=== PATIENT | male | born 1965 | race Caucasian/White ===

== ENCOUNTER 2017-12-22 08:28 | Outpatient (CLI) | payer OTHER, SELFPAY ==
--- NOTE | 2017-12-16 15:00 | DIABASSESS_ITS ---
DESCRIPTION/ASSESSMENT: Carlos Fontana presents for diabetes self-management with a focus on food choices. FOOD: Carlos has cut out all soda and snacks between meals, bread, pasta and potato. He eats one meal a day of meat and salad and fish once a week. He does snack on salad and fruit. He drinks 2-5 cups coffee with milk and 1 teaspoon sugar. He states he has lost about 20 pounds since September when he was first diagnosed. PHYSICAL ACTIVITY: Carlos states he has recovered from Plantar fasciitis and no longer has pain when he walks. 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 MONITORING: A1c explained. He does not use a glucometer at this time. MEDICATIONS: none except for hypertension and acid reflux. STRESS: Carlos describes constant high stress primarily related to family issues and work stressors. Denies symptoms of depression. RISKS: Carlos smokes a pack per day. States he drinks alcohol a few times a week. INTERVENTION: Food: reviewed carbohydrate sources and portions, however focused non- carbohydrate foods. Described ways to vary his food choices for increased satisfaction, although he does not admit to feeling deprived or have cravings. Monitoring: Performed random blood sugar after his work day. Results: 100mg/dl. Described what this means and importance of A1c follow-up to verify his having decreased his blood sugar and A1c to a goal of less than 6.5. Stress management: described possible basic strategies to decrease stress. 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 Carlos is elated at the glucometer results and is encouraged that he has achieved a reduction in his blood sugar. He is motivated to do the following: PLAN: Continue to limit carbohydrate while increasing the variety of foods he can eat. Continue physical activity F/U with PCP for A1c test We will be in touch by telephone and follow up as needed.
== END 2017-12-22 08:48 ==
PROVIDERS: PCP Internal Medicine; Visit Provider Dietitian, Registered
DX: E11.9 Type 2 diabetes mellitus without complications (principal)
CPT/HCPCS: 97802

== ENCOUNTER 2018-06-19 02:17 | Outpatient (CLI) | payer OTHER, SELFPAY ==
[2018-06-19 08:39] LABS: Anion Gap 9.8 mmol/L (3-11); BUN 25 mg/dL (7-18); CO2 28.2 mmol/L (21.0-32.0); CREATININE 0.82 mg/dL (0.70-1.30); Calcium 8.6 mg/dL (8.5-10.1); Chloride 105 mmol/L (98-107); Cholesterol 121 mg/dL (50-200); Glucose 96 mg/dL (70-100); HDL Cholesterol 35 mg/dL (40-60); LDL CHOLESTEROL 77 mg/dL (<100); Potassium 4.2 mmol/L (3.5-5.1); Sodium 143 mmol/L (136-145); Triglyceride 56 mg/dL (30-150)
[2018-06-19 08:40] LABS: COMMENT (LAB VIEW ONLY) 167.37 mg/dL; Microalb ug/mg Crea 7.7 ug/mg Cr
== END 2018-06-19 02:37 ==
PROVIDERS: PCP Internal Medicine; Visit Provider Internal Medicine
DX: I10 Essential (primary) hypertension (principal); E11.9 Type 2 diabetes mellitus without complications
CPT/HCPCS: 36415; 80048; 80061; 83721; 82043; 82570

== ENCOUNTER 2019-11-30 03:23 | Outpatient (CLI) | payer OTHER, SELFPAY ==
[2019-11-30 13:29] LABS: COMMENT (LAB VIEW ONLY) 99.04 mg/dL
[2019-11-30 14:15] LABS: Anion Gap 2.6 mmol/L (3-11); BUN 14 mg/dL (7-18); CO2 32.4 mmol/L (21.0-32.0); CREATININE 0.75 mg/dL (0.70-1.30); Calcium 9.2 mg/dL (8.5-10.1); Calculated LDL 92 mg/dL (<100); Chloride 104 mmol/L (98-107); Cholesterol 155 mg/dL (<200); Glucose 93 mg/dL (74-106); HDL Cholesterol 40 mg/dL (40-60); Potassium 3.8 mmol/L (3.5-5.1); Sodium 139 mmol/L (136-145); Triglyceride 117 mg/dL (<150)
== END 2019-11-30 03:43 ==
PROVIDERS: PCP Internal Medicine; Visit Provider Internal Medicine
DX: E11.9 Type 2 diabetes mellitus without complications (principal); E66.9 Obesity, unspecified; E78.00 Pure hypercholesterolemia, unspecified; I10 Essential (primary) hypertension
CPT/HCPCS: 36415; 80048; 80061; 82043; 82570

== ENCOUNTER 2020-03-07 02:00 | Outpatient (CLI) | payer OTHER, SELFPAY ==
[2020-03-09 10:32] LABS: COVID-19 RT-PCR Result NEGATIVE (Negative)
== END 2020-03-07 02:20 ==
PROVIDERS: PCP Internal Medicine; Visit Provider Surgery
DX: Z11.59 Encounter for screening for other viral diseases (principal); Z01.818 Encounter for other preprocedural examination
CPT/HCPCS: U0003

== ENCOUNTER 2020-03-10 06:19 | Day surgery (SDC) | payer OTHER, SELFPAY ==
[2020-03-10 06:37] VITALS: BP 112/71; PULSE 66; RESP 16; TEMP 36.5; O2SAT 96
[2020-03-10] MEDS: Lactated Ringers 1,000 ML 80 ML IV (06:57)
--- NOTE | 2020-03-10 07:34 | HPE_ITS ---
Date of service: 03/10/20 Time of Service: 07:34 Assessment and Plan Assessment and plan (1) Colon cancer screening: Status: Acute Assessment and plan: Plan:Colonscopy w/ MAC The patient will be scheduled by my office. The pt understands that they need to do a bowel prep and the importance of hydration during this. The patient understands there is a theoretical risk of renal failure. For healthy patients we use Gatorade/Miralax Prep. For anyone with renal concerns- GoLytely will be used. Plavix and coumadin will need to be held except in unusual circumstances. Patients in A. Fib do not need to be bridged with Lovenox or on CVA prophylaxis. A baby ASA can be continued but full dose ASA needs to be stopped for 10 days prior to the procedure. A complete H & P is required within 30 days of the procedure. MAC is used for the colonoscopy. Colonoscopy does not require antibiotics prophylaxis. Risks: Informed consent is obtained for the procedural (explained in simple layman's terms that the pt and/or family could understand) explaining risks vs benefits and alternatives to the procedure and consequences if we do not do the procedure and need/rational for the procedure. Risks include but are not limited to: bleeding, infection, perforation of colon. This would necessitate emergency surgery to repair the damage w/ possible ostomy; and other associated complications w/ the required surgery. Also complications of anesthesia including aspiration, MN/CVA/. I discussed with the patient would they could expect during the procedure, post procedure and recovery time and risks. The patient understands that they need to have a ride home after the procedure. The patient was given all this information in writing and expressed understanding. History of Present Illness Consults Consult date: 03/10/20 Narrative: Presents to discuss screening colonoscopy. No prior colonoscopy. Had a thrombosed external hemorrhoid that has now resolved. No bleeding. Minimal pain. No result with Prep H. Stools tend to be loose after gallbladder surgery. No abdominal pain. No FH colon cancer. Pt has never had a colon cancer screening before. No pain or difficulty with bowel movements. Denies rectal bleeding. There is no family history of any colon cancer. Pt has not had any weight loss. Their appetite is good. No heart, lung, or kidney problems. No heartburn or indigestion. No prior colo- rectal surgery. . No problems with anesthesia in the past. Patient has a history of: DM: yes does not check blood sugars CVA/MN: no Blood thinners: asa- held Kidney disease: no smoker Patient needs to be MAC because of: Medical conditions/airway control Pain control Meds/NKDA/PMHx/PSHx: see [facility] ROS: 4 point ROS neg other than the symptoms noted above in the HPI. Review of Systems All systems reviewed & are unremarkable except as noted in HPI and below PFSH Medical History (Updated 03/10/20 @ 06:31 by John Nicholson) Dilcia infection HTN (hypertension) Surgical History Appendectomy Cholecystectomy (08/27/14) dr. Mays Family History Father Cerebral aneurysm rupture Grandfather Cerebral aneurysm rupture Mother No problems noted. Social History Smoking/Tobacco Use Status: Current every day Tobacco Type: cigarettes Years smoked: 30 Smoking risk assessment performed?: Yes Alcohol Intake: current Alcohol Intake frequency: holidays/special occasions only Alcohol type: hard liquor Drug use: Never Substance use type: does not use Household members: spouse and children Housing: house Number of Children: 4 current occupation: Works at [employer] What is your relationship status?: Panel score (0-1 are the most socially isolated patients): 1 What type of physical activity do you participate in: none Seatbelt use: always Drive intox or ride w/intox 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 Working smoke detector in home: Yes Fire extinguisher in home: Yes Carbon monox detector in home: Yes Do you feel safe at home: Yes Do you feel safe in your relationship?: Yes Meds Home Medications and Allergies Home Medications Medication Instructions Recorded Confirmed Type aspirin [Aspirin Low Dose] 81 mg PO DAILY tab-cap 08/06/12 03/10/20 History carvedilol 25 mg tablet 25 mg PO BID #180 tab-cap 11/30/19 03/10/20 Rx cimetidine 800 mg tablet 800 mg PO BID #180 tab 11/30/19 03/10/20 Rx doxazosin 4 mg tablet 4 mg PO DAILY #90 tab-cap 11/30/19 03/10/20 Rx lisinopril 20 1 tab PO DAILY #90 tab-cap 11/30/19 03/10/20 Rx mg-hydrochlorothiazide 25 mg tablet pravastatin 40 mg tablet 40 mg PO DAILY #90 tab-cap 11/30/19 03/10/20 Rx Allergies Allergy/AdvReac Type Severity Reaction Status Date / Time No Known Allergies Allergy Verified 03/08/20 13:57 Exam Narrative Exam Narrative: PHYSICAL EXAM comp;leted prep- cl yellow fluid GENERAL APPEARANCE: Alert, healthy appearance, oriented, in no acute distress HYDRATION: Well hydrated HEAD, EYES, EARS, NECK, and Throat: Head is normocephalic, pupils equal, round, reactive to light and accommodation, ocular movement int NECK: Supple, no lymphadenopathy, LUNGS: normal respiration, clear to auscultation HEART: Regular rate and rhythm, normal heart sounds, EXTREMITY: No edema or cyanosis, ABDOMEN: soft + BS mild cramping NEURO: CN: Intact. Results Last Vital Signs Temp 36.5 C 03/10/20 06:37 Pulse 66 03/10/20 06:37 Resp 16 03/10/20 06:37 BP 112/71 03/10/20 06:37 Pulse Ox 96 03/10/20 06:37 COVID-19 Screening Have you, or household traveled for leisure in last 14 days?: No Had IN PERSON contact w/suspected or confirmed C-19 person: No
--- NOTE | 2020-03-10 07:48 | W.PM.DSUDISC ---
Discharge Plan Disposition Patient Disposition: HOME Condition: Good Discharge Details Reason For Visit: Colonoscopy. Attending Provider: Geno Sebastian Primary Care Provider: Mireya Lindsey Home Meds and New Rx's Prescriptions: Continued cimetidine 800 mg tablet 800 mg PO BID Qty: 180 RF: 3 carvedilol 25 mg tablet 25 mg PO BID Qty: 180 RF: 3 doxazosin 4 mg tablet 4 mg PO DAILY Qty: 90 RF: 3 lisinopril-hydrochlorothiazide 20-25 mg tablet 1 tab PO DAILY Qty: 90 RF: 3 pravastatin 40 mg tablet 40 mg PO DAILY Qty: 90 RF: 3 Discontinued aspirin [Aspirin Low Dose] 81 MG tablet,delayed release (DR/EC) 81 mg PO DAILY RF: 0 Discharge Instructions Additional Instructions: Findings:x2 Lg polyps. x3 sm polyps diverticular Dx -No ASA/NSAID's for 2 wks Follow up:repeat in 3 yrs.probably Please send a letter in 2 to 3 weeks with the results of the pathology and when exactly to repeat scope. Please call if you develop: fevers >101.5 Nausea or Vomiting Abdominal pain that is not transient DAY SURGERY UNIT POST COLONOSCOPY INSTRUCTIONS 1. Because there will be medication in your system for the next 24 hours, you may feel a little sleepy. Your coordination will be affected. Therefore: a. Do not drive or operate dangerous equipment for 24 hours. b. Do not drink alcohol beverages for 24 hours (not even beer). c. Plan to go home and rest for the day. 2. Generally there are no restrictions on your activity after a day or so has gone by, but you may feel a bit fatigued for a few days. 3 After you arrive home you may have a light meal and return to a normal diet as you can tolerate it without feeling sick to your stomach. 4. After surgery, you may feel pain or discomfort. This should be only transient, but if it persists please contact your doctor. 5. If there are any questions regarding the findings of your procedure, please feel free to contact your doctor. 6. If you are unable to contact your doctor with a problem, contact the hospital at [phone]. 7. Continue all your regular medications unless directed otherwise. I understand the above instructions and have no questions. Signature of Patient or Responsible Adult Escort Date/Time Name of Responsible Adult Escort Signature of Nurse Date/Time DIVERTICULAR DISEASE OVERVIEW ? A diverticulum is a pouch-like structure that can form through points of weakness in the muscular wall of the colon (ie, at points where blood vessels pass through the wall). Diverticulosis affects men and women equally. The risk of diverticular disease increases with age. It occurs throughout the world but is seen more commonly in developed countries. WHAT IS DIVERTICULAR DISEASE? Diverticulosis ? Diverticulosis merely describes the presence of diverticula. Diverticulosis is often found during a test done for other reasons, such as flexible sigmoidoscopy, colonoscopy, or barium enema. Most people with diverticulosis have no symptoms and will remain symptom free for the rest of their lives. A person with diverticulosis may have diverticulitis, or diverticular bleeding. Diverticulitis ? Inflammation of a diverticulum (diverticulitis) occurs when there is thinning and breakdown of the diverticular wall. This may be caused by increased pressure within the colon or by hardened particles of stool, which can become lodged within the diverticulum. The symptoms of diverticulitis depend upon the degree of inflammation present. The most common symptom is pain in the left lower abdomen. Other symptoms can include nausea and vomiting, constipation, diarrhea, and urinary symptoms such as pain or burning when urinating or the frequent need to urinate. Diverticulitis is divided into simple and complicated forms. ?Simple diverticulitis, which accounts for 75 percent of cases, is not associated with complications and typically responds to medical treatment without surgery. ?Complicated diverticulitis occurs in 25 percent of cases and usually requires surgery. Complications associated with diverticulitis can include the following: ?Abscess ? a localized collection of pus ?Fistula ? an abnormal tract between two areas that are not normally connected (eg, bowel and bladder) ?Obstruction ? a blockage of the colon ?Peritonitis ? infection involving the space around the abdominal organ ?Sepsis ? overwhelming body-wide infection that can lead to failure of multiple organs Diverticular bleeding ? Diverticular bleeding occurs when a small artery located within a diverticulum is eroded and bleeds into the colon. Diverticular bleeding usually causes painless bleeding from the rectum. In approximately 50 percent of cases, the person will see maroon or bright red blood with bowel movements. Is bleeding with a bowel movement normal? ? It is not normal to see blood in a bowel movement; this can be a sign of several conditions, most of which are not serious (eg, hemorrhoids) but some of which are serious and require immediate treatment. Anyone who sees blood after a bowel movement should consult with their healthcare provider to determine if further testing or evaluation is needed. DIVERTICULOSIS AND DIVERTICULITIS DIAGNOSIS ? Diverticulosis is often found during tests performed for other reasons. ?Barium enema ? This is an x-ray study that uses barium in an enema to view the outline of the lower intestinal tract. This is an older test and has been largely replaced by computed tomography (CT) scan. ?Flexible sigmoidoscopy ? This is an examination of the inside of the sigmoid colon with a thin, flexible tube that contains a camera. ?Colonoscopy ? This is an examination of the inside of the entire colon. ?CT scan ? A CT scan is often used to diagnose diverticulitis and its complications. If diverticulitis (not just diverticulosis) is suspected, the above three tests should not be used because of the risk of perforation. TREATMENT Diverticulosis ? People with diverticulosis who do not have symptoms do not require treatment. However, most clinicians recommend increasing fiber in the diet, which can help to bulk the stools and possibly prevent the development of new diverticula, diverticulitis, or diverticular bleeding. Fiber is not proven to prevent these conditions in all patients but may help to control recurrent episodes in some. Increase fiber ? Fruits and vegetables are a good source of fiber. Fiber content of packaged foods can be calculated by reading the nutrition label. Seeds and nuts ? Patients with diverticular disease have historically been advised to avoid whole pieces of fiber (such as seeds, corn, and nuts) because of concern that these foods could cause an episode of diverticulitis. However, this belief is completely unproven. We do not suggest that patients with diverticulosis avoid seeds, corn, or nuts. Diverticulitis ? Treatment of diverticulitis depends upon how severe your symptoms are. Home treatment ? If you have mild symptoms of diverticulitis (mild abdominal pain, usually left lower abdomen), you can be treated at home with a clear liquid diet and oral antibiotics. However, if you develop one or more of the following signs or symptoms, you should seek immediate medical attention: ?Temperature >100.1?F (38?C) ?Worsening or severe abdominal pain ?An inability to tolerate fluids Hospital treatment ? If you have moderate to severe symptoms, you may be hospitalized for treatment. During this time, you are not allowed to eat or drink; antibiotics and fluids are given into a vein. If you develop an abscess of the colon, you may require drainage of the abscess (usually performed by placing a drainage tube across the abdominal wall) or by surgically opening the affected area. Surgery ? If you develop a generalized infection in the abdomen (peritonitis), you will usually require an emergency operation. A two-part operation may be necessary in some cases. ?The first operation involves removal of the diseased colon and creation of a colostomy. A colostomy is an opening between the colon and the skin, where a bag is attached to collect waste from the intestine. The lower end of the colon is temporarily sewed closed to allow it to heal. ?Approximately three to six months later, a second operation is performed to reconnect the two parts of the colon and close the opening in the skin. You are then able to empty your bowels through the rectum. Sometimes patients require up to a year to recover from the first operation, depending on how sick they were. In non-emergency situations, the diseased area of the colon can be removed and the two ends of the colon can be reconnected in one operation, without the need for a colostomy. Surgery versus medical therapy ? An operation to remove the diseased area of the colon may be necessary if you do not improve with medical therapy. After an episode of uncomplicated diverticulitis, elective surgery is generally not required as the risk of another attack or requiring emergency surgery is low. However, patients with persistent symptoms attributable to diverticulitis, a history of complicated diverticulitis, or a compromised immune system should be evaluated for possible surgery to prevent another attack. In such patients, another attack has been associated with a higher risk of complications or . Of course, the decision will also depend in part upon your other medical conditions and ability to undergo surgery. In many cases, an elective operation can be performed laparoscopically, using small incisions, rather than the typical vertical (up and down) abdominal incision. Laparoscopic surgery usually allows you to recover more quickly and shortens the hospital stay. After diverticulitis resolves ? After an episode of diverticulitis resolves, if you have not had a recent colonoscopy, the entire length of the colon should be evaluated to determine the extent of disease and to rule out the presence of abnormal lesions such as polyps or cancer. Recommended tests include colonoscopy, barium enema and sigmoidoscopy, or CT colonography. Diverticular bleeding ? Most cases of diverticular bleeding resolve on their own. However, some people will need further testing or treatment to stop bleeding, which may include a colonoscopy, angiography (a treatment that blocks off the bleeding artery), bleeding scan, or surgery. DIVERTICULAR DISEASE PROGNOSIS Diverticulosis ? Over time, diverticulosis may cause no problems or it may cause episodes of bleeding and/or diverticulitis. Approximately 15 to 25 percent of people with diverticulosis will develop diverticulitis, while 5 to 15 percent will develop diverticular bleeding. Diverticulitis ? Approximately 85 percent of people with uncomplicated diverticulitis will respond to medical treatment, while approximately 15 percent of patients will need an operation. After successful treatment for a first attack of diverticulitis, one-third of patients will remain asymptomatic, one-third will have episodic cramps without diverticulitis, and one-third will go on to have a second attack of diverticulitis. The prognosis tends to remain similar following a second attack of diverticulitis. Only 10 percent of people remain symptom-free after a second attack. Subsequent attacks tend to be of similar severity, not increasing in severity as previously believed. High Fiber Diet What is Dietary Fiber? All fiber comes from plants, bushes, priyanka or trees. Of course, the ones that we eat provide us with fruits, vegetables and grains. There are many different types of fiber but the three that are most important to the health of the body are: Insoluble Fiber This fiber does not dissolve in water, nor is it fermented by the bacteria residing in the colon. Rather, it retains water and in so doing, helps to promote a larger, bulkier and more regular bowel activity. This, in turn, may be important in preventing disorder such as diverticulosis and hemorrhoids, and in sweeping out certain toxins and cancer causing carcinogens. Sources of insoluble fiber are: ? whole grain wheat and other whole grains ? corn bran, including popcorn, unflavored and unsweetened ? nuts and seeds ? potatoes and the skins from most fruits from trees such as apples, bananas and avocados ? many green vegetables such as green beans, zucchini, celery and cauliflower ? some fruit plants such as tomatoes and kiwi Soluble Fiber These fibers are fermented or used by the colon bacteria as a food source or nourishment. When these good bacteria grow and thrive, many health benefits occur in both the colon and the body. Soluble fiber is present in some degree in most edible plant foods, but the ones with the most soluble fiber include: ? legumes such as peas and most beans, including soybeans ? oats, rye and barley ? many fruits such as berries, plums, apples bananas and pears ? certain vegetables such as broccoli and carrots ? most root vegetables ? psyllium husk supplement products Prebiotic Soluble Fiber These are relatively newly discovered soluble plant fibers. The technical name for this fiber is inulin or fructan. When these soluble fibers are fermented by the good colon bacteria, some further significant health benefits have been shown to occur by research in many medical centers. These soluble prebiotic fibers occur in significant amounts in: ? asparagus ? yams ? onions ? garlic ? bananas ? leeks ? agave ? chicory and other root vegetables such as [place] artichokes ? wheat, rye and barley (smaller amounts) Benefits of a High Fiber Diet The health benefits of a high fiber diet, consumed on a regular basis and reaching recommended amounts (below), are now fairly well-defined. There are some additional benefits in the early research stage with the prebiotic soluble fibers. What is now known regarding a high fiber diet include: Bowel Regularity A high fiber diet promotes regularity with a softer, bulkier and regular stool pattern. This decreases the chance of hemorrhoids, diverticulosis and perhaps colon cancer. Cholesterol and Reduced Triglycerides The soluble fibers are the ones that will reduce cholesterol levels when used on a regular basis. Psyllium husk and prebiotic soluble fiber will also reduce cholesterol. They may also reduce the incidence of coronary heart disease. Oats, flax seeds and legumes or beans are the recommended fibers. Colon Polyps and Cancer It is still not certain if a high fiber diet helps prevent colon cancer. Considerable research suggests that this may occur. Certainly it makes sense to increase regularity and so speed the movement of cancer causing carcinogens through the bowel. In addition, reducing a heavy meat diet reduces the bile flow from the liver in a favorable way. This, too, reduces the amount of carcinogens that reach and are manufactured in the colon. Finally, a high fiber diet, including prebiotic soluble fiber, increases the integrity and health of the wall of the colon. The risk of cancer may be reduced. Colon Wall Integrity A high fiber diet changes the bacterial makeup of the colon toward a more favorable balance. For instance, it is known that those people with obesity, diabetes type 2 and inflammatory bowel disease have a predominance of bad bacteria in the colon. This, in turn, may render the bowel wall weak and allow bacteria and, indeed, even toxins to seep through. A high fiber diet with a modest reduction in animal and meat products may return the bacterial makeup to a more positive balance. This, in particular, has been seen when the soluble fiber prebiotics are added to the diet. Blood Sugar Soluble fiber such as in legumes (beans), oats and in prebiotic fibers slows the absorption of blood sugar and so helps regulate the sugar in the blood. Insoluble fiber on a regular basis is associated with reduced risk of type 2 diabetes. Weight Loss High fiber diets are more filling and give a sense of fullness sooner than an animal and meat based diet does. In addition, the soluble prebiotic fibers have been shown to turn off the hunger hormones produced in the wall of the gut and to increase the hormones that give a sense of fullness. Those hormones are made in the wall of the gut. New medical research has shown that the bacterial makeup in the colon in overweight people is abnormal to the extent that they manufacture and absorb almost twice the number of calories through the colon wall as do normals. Prebiotic fibers (below) will help change this hormonal balancein a favorable way. Bacteria and the Function of the Colon The colon finishes the digestive process. Hopefully, the waste products move through in a nice regular manner. Insoluble fibers help this process by retaining water and so producing a bulkier, softer stool, which is easy to pass. The additional role of the colon is to provide a home for an enormous number of micro-organisms, mostly bacteria. Recent research has shown that there are over 1,000 species of bacteria with a total bacterial count ten times the number of cells in the body. These bacteria play a major role in keeping the colon wall itself healthy. In addition, these good bacteria produce a very strong immune system for the body. They significantly increase calcium absorption and bone density. They provide other documented benefits. It is the soluble fibers in the diet that are so effective in stimulating the growth of good colon bacteria. How Much is Enough? The amount of fiber in food is measured in grams. National nutritional authorities recommend the following amounts of dietary fiber daily. Under Age 50 Over Age 50 Men 38 grams 30 grams Women 25 grams 21 grams For a week or so, it is best to tally the amount of fiber you are consuming. Boxed and packaged foods will have the amount of fiber per serving on the nutrition label. Which Fibers and Which Foods are Best? As noted, healthy fiber is only found in plants. The three major categories are whole grains, fruits and vegetables. Whole Grains Wheat, oats, barley, wild or brown rice, amaranth, buckwheat, bulgur, corn, millet, quinoa, rye, sorghum, teff and triticals. By far, wheat, oats and wild or brown rice are most common. Always buy whole grain products. White bread, baked goods and rolls almost always are made from wheat flour. Wheat flour is white because most of the fiber, vitamins and other nutrients have been removed. Try not buy enriched grains. What this means is that simple white flour has had vitamins added to it by the co supervisor grounds and landscape. The word, enriched, implies a good and healthy product. On the contrary, enriched means that most of the fiber has been removed and a few vitamins added. Fruits Fruits come from trees such as apple and pear or from bushes or priyanka. You should eat a wide variety of fruits, preferably with every meal. In many cases, the skin of a fruit such as apple will contain much of the insoluble fiber while the pulp contains most of the soluble fiber. To the extent possible, buy organic fruits as these will have little or no pesticides. Always wash fruit. Vegetables Eat a wide variety of vegetables. They should be a mainstay of lunch and dinners. Frozen vegetables retain as much nutrition and fiber as fresh vegetables. As with fruit, try to buy organic to reduce any residual pesticide ingestion. Wash fresh vegetables thoroughly. Cruciferous vegetables such as broccoli, [place] sprouts and cauliflower contain certain chemicals such as sulforaphane. This substance has very strong anti-cancer properties and should be eaten frequently. Legumes, Beans, Peas and Soybeans These vegetables have plenty of soluble fiber and should be part of a varied vegetable intake. Beans, in particular, contain a certain type of fiber that may lead to harmless gas or bloating. Nuts and Seeds These are rich sources of fiber and are a good substitute for sweets such as candies and baked sweet goods. While nuts and seeds are rich in fiber, they also contain vegetable fat and so can and do add calories. Read the Labels As noted, fresh and frozen foods are usually better. They have good nutrition and few, if any, chemicals added to them. When buying packaged foods and, in particular grains, look for three things: ? The first word on the label should be whole, such as whole wheat or whole grain. ? Check out the calories and the amount of fiber in a serving. ? How many and what other additives or chemicals are added. Fewer is always better. Do you know what each additive does? Some are added not for the benefit of the wholesale buyer but rather for manufacturers. These could and do include sugar, artificial flavor, chemicals to prevent oxidation and spoilage, emulsifiers to blend the product. You have to be a higher level teaching assistant. Fiber Facts, Nuggets and Pearls ? For breakfast you can easily get the day started well by using a high fiber, whole grain cereal. Check the labels. Add fruit such as blueberries and bananas. If you are an egg eater, use whole wheat or grain toast. Adding wheat germ gives you a good fiber kick. ? Always use whole grain or wheat with rolls and sandwiches. Does your fast food store not have them? Perhaps you look elsewhere. Eating an occasional black aldridge or veggie burger provides variety. ? Snacks should consist of fruit and/or nuts. While nuts are loaded with fiber, they are an energy rich food, meaning they have a lot of calories in a small packet. ? Fruit juices should contain pulp. Clear juices such as clear orange, pear or apple juice contain little fiber and have a lot of fructose. Prune juice is usually high in fiber. ? Homemade soups ? adding fresh or frozen vegetables to a chicken or vegetable stock is a good way to start homemade soup. ? Salads ? adding cooked and then chilled vegetables provide great flavoring to almost any salad. Remember, a castro salad has lots of cooked corn in it. Small slices of apples or oranges and nuts such as chopped walnuts or sliced almonds always adds taste, variety and fiber to almost any salad. ? Fruit ? Try to eat fruit of some type with almost every meal. ? Rethink how you place the various foods on your dinner plate. Reducing the portions of the meat or animal food portion to the side with equal or more portions of vegetables, legumes and fruits portion always allows for more fiber. There was never anything magic about making the meat or animal food portion the main part of the dinner plate. Eating from smaller plates can, over time, trick your mind and terminal clerk habit of using a dinner plate. Again, there is nothing magic in an 11, 12, or 13 inch dinner plate. Fiber Supplements There are a variety of fiber supplements available on the food or pharmacy shelves. Psyllium This soluble plant fiber has been used in [place] for over 2,000 years. It is a soluble fiber with mucilage in it. This acts to retain a lot of water and also is fermented by colon bacteria. When 7 grams a day are used, it does lower cholesterol. Metamucil in various forms is psyllium. Methyl Cellulose All the cellulose products come from finely ground wood chips which are then treated in a variety of ways such as boiling in acids. Methyl cellulose is an insoluble fiber which does dissolve in water. It is also an emulsifier, meaning it blends oils and water. Citrucel is methyl cellulose (MC). MC may not be appropriate for Crohn?s disease or ulcerative colitis as several medical studies have shown that certain emulsifiers dissolve the mucous lining of the colon in animals prone to Crohn?s disease. This then allows bacteria to invade the underlying tissue. Inulin Inulin is a soluble prebiotic fiber found in many foods and which are fermented mostly in the left side of the colon. It is available in a supplement as generic inulin and in Fiber Choice. Oligofructose FOS These are also prebiotic fibers. They are fermented very quickly in the right side of the colon. Prebiotin This product is a combination of oligofructose, which feeds the bacteria in the right side of the colon and inulin, which does the same in the left side of the colon. There seems to be a benefit for this particular formula based on medical research. Prebiotic Soluble Fiber These may be the healthiest of all the soluble fibers. They grow in many plants and have had a great deal of research done on them in the last 10-15 years. These fibers are found in asparagus, yams and other root vegetables such as chicory, garlic, onion, leeks and in smaller amounts in wheat. This research has shown the following: ? Increase in good and decrease in bad colon bacteria ? Increase calcium absorption and enhanced bone mass ? Enhanced immune system ? Appetite and weight control by changing the hormone appetite signals to the brain ? May decrease colon cancer incidence ? Reduce or correct a leaky colon Eating a wide variety of plant food up to the recommended amount will likely give you enough prebiotic fiber. Supplements such as Prebiotin can be added to the diet. Short Chain Fatty Acids (SCFA) Some rather remarkable research findings have shown that one of the benefits of ingesting a lot of soluble fiber, in particular the prebiotic ones, results in larger amounts of SCFAs in the colon. These SCFAs are made by the good bacteria in the colon such as Bifidobacter and Lactobacillus. These small molecules have been shown to do the following: ? Enhance the health and integrity of the colon wall ? Provide nourishment for the cells that actually line the colon ? Increases the acidity of the colon which is a very real health benefit ? Stabilize blood sugar for diabetics ? Reduce blood cholesterol and triglyceride ? Significantly enhance immunity ? May be a benefit for Crohn?s disease and ulcerative colitis patients Fiber and Gas Everyone has intestinal gas and that is a good thing. It means that bacteria, hopefully the good ones, are thriving. The normal amount of flatus passed each day depends on sex and what is eaten. The normal number of flatus is 10-20 times a day. When the bacteria that make intestinal gases are growing, it also means that other good bacteria are using the same fibers to grow and produce multiple health benefits, including the production of healthy short-chain fatty acids. These substances are produced quietly in the colon and produce many health-related outcomes. Soluble fiber should always be used in a gradual manner. If too much is consumed at any one time, then excess, but harmless, intestinal gas can occur. People with irritable bowel syndrome are particularly prone to bloating and mild cramping. In this instance, soluble fiber in the diet or supplement should be used in small doses and increased gradually. Finally, prebiotic fibers tend to cause the production of short-chain fatty acids which acidify the colon. This, in turn, reduces or stops the growth of bacteria that make the smelly hydrogen sulfide gases that produce noxious flatus. People who consume many vegetables with prebiotics or take a prebiotic fiber supplement often have non-odoriferous flatus. Fiber and Irritable Bowel Syndrome Irritable bowel syndrome (IBS) is one of the most common disorders of the lower digestive tract. The symptoms of IBS can be quite varied. They can be a mix of several symptoms such as constipation, diarrhea, crampy abdominal discomfort, bloating and gas. An attack of IBS can be triggered by emotional tension and anxiety, poor dietary habits and certain medications. It is now known that infections in the intestine can lead to long-term IBS symptoms. Increased amounts of fiber in the diet can help relieve the symptoms of irritable bowel syndrome by producing soft, bulky stools. This helps to normalize the time it takes for the stool to pass through the colon. Recent medical research with newer techniques has shown some surprising and dramatic findings for IBS patients. Specifically, there is a very significant and abnormal shift of bacteria from those that provide health benefits to those bad bacteria that we really do not want in the gut. The technical name for this bad group of bacteria is called Firmicutes. Along with this abnormal bacterial collection, there is a smoldering low-grade inflammation in the gut wall that may contribute to symptoms. The goal for IBS patients should be to gradually increase the soluble dietary fibers in the diet so as to promote the growth of good bacteria and so suppress the bad ones along with the associated inflammation. IBS patients need to be careful of the amount of soluble fiber they consume. The reason for this is that, while the good colon bacteria thrive on these fibers and produce health benefits, other gas-forming bacteria may generate excessive but harmless gas and subsequent bloating. Thus, soluble plant fibers or a dietary prebiotic supplement should be taken in small initial doses and then gradually increased to tolerance. Fiber and Colon Polyps/Cancer Colon cancer is a major health problem. This disease is most common in Western cultures. It is not seen very often in rural cultures where the diet is mostly plant based. Usually, colon cancer starts out as a colon polyp, a benign mushroom-shaped growth. In time it grows, and in some people it becomes cancerous. Colon cancer is usually always curable if polyps are removed when found or if surgery is performed at an early stage. It is now known that people can inherit the risk of developing colon cancer, but diet is important, too. As noted, there is a very low rate of colon cancer in residents of countries where grains are unprocessed and retain their fiber. It seems that in the Western world, cancer-containing agents (carcinogens) remain in contact with the colon wall for a longer time and in higher concentrations. So, a large bulky stool may act to dilute these carcinogens by moving them through the bowel more quickly. Less carcinogenic exposure to the colon may mean fewer colon polyps and less cancer. A very current review of the entire world?s literature on the effect of fiber on colon polyps and cancer prevention has shown rather clearly that for every 10 grams of fiber added to the diet, there is a 10% reduction in incidence of colon cancer. So the recommended 30 gram fiber diet would result in a 30% less chance of getting these tumors. There are also substances produced in the colon by the good bacteria that seem to retard certain pre-cancer factors from developing. They are called short-chain fatty acids (SCFA). See above for description of SCFAs. A high fiber diet increases these substances. So, the combination of dietary fiber and the production of short-chain fatty acids have a clear health benefit. Fiber and Diverticulosis Prolonged, vigorous contraction of the colon over a long period of time may result in diverticulosis. This increased pressure causes small and, eventually, larger ballooning pockets to form. These pockets by themselves cause no problem. However, sometimes they become infected (diverticulitis) or even break open (perforate) causing infection or inflammation within the abdomen (peritonitis). A high fiber diet increases the bulk in the stool and thereby reduces the pressure within the colon. By so doing, the formation of pockets may be reduced or possibly even stopped. In the past, many physicians were fearful that seeds as in tomatoes, nuts or berries were harmful and could get inside these pockets and rattle around, causing damage. We now know that this has never been the case and that these foods contain lots of fiber and are actually beneficial for diverticulosis patients. Certain bulking agents such as psyllium are traditional types of bulk producing supplements. Psyllium is a soluble fiber. Combining it with insoluble fiber as in wheat bran or corn bran (no gluten) can enhance this bulking effect even more. A product containing a prebiotic, psyllium and wheat bran is probably a very good combination for bowel regularity. Prebiotin Regularity/Diverticulosis is one such product. Activity:: No lifting over 20 pounds or strenuous activity x72 hours. Diet:: Small light meals x24 hours. Usually Discharge Orders Discharge Orders: Discharge Order (Routine); Ordered 03/10/20 Ordered By: Geno Sebastian DS: Diagnosis Discharge Diagnosis (1) Colon cancer screening: Status: Acute (2) Diverticula of colon: Status: Acute (3) Adenomatous polyps: Status: Acute (4) Sleep apnea in adult: Status: Acute
--- NOTE | 2020-03-10 07:48 | W.COLOREPORT ---
Date of service: 03/10/20 Time of Service: 07:48 Colonoscopy Report Date of procedure: 03/10/20 Pre-op diagnosis general: screen Surgeon: Geno Sebastian Anesthesia proc note operative: GETA Procedure Description: After informed consent was obtained the patient was taken to the procedure room and placed in a left decubitous position. Monitors were applied and a time out was done. The patients name, date of , procedure, allergies to medications and metal in their body was reviewed. The patient was then sedated. Once sedated and comfortable a rectal exam was done. External exam was normal. Internal exam revealed a normal sphincter tone and no palpable masses. The scope was then introduced and retrofelexed. no internal hemorrhoids were identified. The scope was then advanced to the cecum w/ out difficulty. The TI and appendiceal orifice were identified. The prep was adequate. The scope was then slowly retracted over 20 minutes back into the rectum. Polyps were removed at: patient had a small, <5mm, flat polyp at 30 cm that was removed with a cold biting forcep. Patient had a 2 cm pedunculated polyp, with a central ulceration, that was removed with a hot snare at 30 cm. A clip was placed over this defect. the specimen is retrieved and no bleeding was noted. Patient had additional small flat 5 mm polyps at 20 cm- are removed with a cold forcep. He had an additional 1 cm polyp that was pedunculated and round at 20 cm. This is removed with a hot snare. A clip was not placed across this defect. He does have diverticular disease it is minor/mild. There is no signs of active bleeding or infection. It is confined to the sigmoid colon. The mucosa is otherwise pink and healthy. All specimens are retrieved and no bleeding is noted.. The scope was removed and the patient was woken up and taken back to Same day surgery in stable condition. The patient tolerated the procedure well and there were no immediate complications. Follow up: The patient should follow up in 3-5years, path pending, unless they develop changes in bowel habits or other new gastrointestinal complaints.
--- NOTE | 2020-03-10 08:11 | BOWEL_PTH ---
PATIENT: Carlos Fontana LOC: [facility] U#:[id number] AGE/SX: 54/M ROOM: RE03/10/[address]: Geno Sebastian : 1965 BED: DIS: 03/10/2020 SPEC #: [id number] RECD: 03/10/20 12:25 STATUS: JANETH REQ #: [id number] JENIFFER: 03/10/20 08:[address]: Geno Sebastian DEPT: Surgical Specimen RECD BY: Mindy Castro ENTERED: 03/10/20 12:27 SP TYPE: Bowel OTHR DR: Mireya Lindsey MD Tissues: 1 - BIOPSY BOWEL 2 - BIOPSY BOWEL Procedures: GROSS AND MICRO LEVEL 4 Comments: [id number]
[2020-03-10 09:02] VITALS: BP 115/60; PULSE 69; RESP 16; TEMP 36.7; O2SAT 95
== END 2020-03-10 09:30 | disposition home or self-care (01) ==
PROVIDERS: PCP Internal Medicine; Visit Provider Surgery
PROC: 0DJD8ZZ Inspection of Lower Intestinal Tract, Via Natural or Artificial Opening Endoscopic (ICD-10-PCS; CPT 45378; principal; 2020-03-10 07:30)
DX: Z12.11 Encounter for screening for malignant neoplasm of colon (principal); K57.30 Diverticulosis of large intestine without perforation or abscess without bleeding; D12.6 Benign neoplasm of colon, unspecified; I10 Essential (primary) hypertension
CPT/HCPCS: 45385; 45380; 45382; 88305; 99221

== ENCOUNTER 2021-10-22 02:20 | Outpatient (CLI) | payer BC, SELFPAY ==
--- OUTSIDE RECORDS SUMMARY | 2021-10-22 02:29 | XMS_ITS | Encounter Summary ---
:1965 Author Organization [facility] Address [address] [place] [address] Care Team Providers Name Role Phone Md RONNA Max Primary Care Provider Unavailable Encounter Details Date Type Department Care Team Description 11/16/2008 Orders Only [facility] Too Ch[facility]vez [facility] [address] [place] [address] [place], [place] [address] [phone] Social History Tobacco Use Types Packs/Day Years Used Date Never Assessed Sex Assigned at Date Recorded Not on file documented as of this encounter Plan of Treatment Not on filedocumented as of this encounter Procedures Procedure Name Priority Date/Time Associated Diagnosis Comme nts SURGICAL PATHOLOGY Routine 11/16/2008 0:00 EDT Re sults for this procedure are i n the results section. documented in this encounter Results SURGICAL PATHOLOGY (11/16/2008 0:00 EDT) Pathology Report: SURGICAL PATHOLOGY REPORT ? DIDI RODAS Reports generated via electr [employer] interface contain original data; ? LAB however they are lacking the format of the original report. ? Caution should be taken when reading/interpreting unformatted reports. ? Name: ? URY, RASHI ? Accession #: ? [id number] ? : ? 1965 (Age: 43) ??M ? Collec t Date: ? 11/16/2008 ? Location: ? [facility] ? R eceive Date: ? 11/17/2008 ? Provider: TOO WALKO MD ? Copy to: NIKKI SCHWARTZ MD ? Final Pathologic Diagnosis: ? Appendix, appendectom y: ? - Acute appendicitis with ma rked transmural inflammation and extensive ? serositis. ??See comment. ? Comment: ? Corrosion Technician sectio ns of this case have been reviewed at ? intradepartmental consultati on conference. ??(Dr. Tan)/cjh ? Document reviewed and electr onically signed by: ? TIARRA TAN MD ? Report ??Date: 11/23/2008 16 :51 ? By the signature above, the attending physician certifies that he/she has ? personally conducted a gross and/or microscopic examination of the described ? specimens and rendered or co nfirmed the above diagnosis. ? Specimen(s) Received: ? Appendix ? Clinical History: ? Necrotic appendicitis ? Gross Description: ? Received in formalin labelled Ruy Rashi and appendix are two ? portions of a partially frag mented appendix, with the distal portion measuring ?? 1.7 cm in length by 1.5 cm i n diameter and the proximal portion measuring 2.5 cm in length by 1.[address] ??The wall of both ends of the proximal portion is fragmented, jagged, and, thus, the proximal margin is not discernible. ??Both pieces of appendix are marke dly dusky, brown to focally keating, and have a moderate amount of mesoappendix, whic h is dusky, light yellow to keating-washington, with a ? moderate amount of [place]-whit e fibrinous exudate. ??The distal end of the ? gallbladder has a 0.5 cm in diameter defect, with the wall of the opposite end ?? of the segment having a jagg ed, hemorrhagic appearance. ??Also received ? separately in the specimen c brooklynnainer are two pieces of dusky, slightly firm ? fibrofatty tissue which betty ure 1.8 x 1.3 x 0.4 cm. ??There are no fecaliths. ? Corrosion Technician sections of kieran stephens specimen are submitted as follows: ? BLOCK VANEGAS ? A1 ?Perpendicul ar section of distal end of appendix ? A2 ?Cross secti on of one end of proximal portion of appendix, black ? inked ? A3 ?Cross secti on of opposite end of proximal segment of appendix, blue inked ? A4 ?Cross secti on of mid portion of proximal segment ? (J. Tessitore)/ljn ? End of Report ? Specimen Performing Organization Address City/State/[facility] Code Phon e Number [facility] [address] [place] [address] SERVICES [facility] [place] [facility] [address] [place] [address] documented in this encounter Visit Diagnoses Not on filedocumented in this encounter Care Teams Crankshaft Straightener Relationship Specialty Start Date End Date Md Max MD PCP - General 11/17/08 09/01/14 documented as of this encounter
--- OUTSIDE RECORDS SUMMARY | 2021-10-22 02:29 | XMS_ITS | Clinical Summary ---
:1965 Author Organization [facility] Address [address] [place] [address] Care Team Providers Name Role Phone Mireya Lindsey MD Primary Care Provider Social History Tobacco Use Types Packs/Day Years Used Date Never Assessed Sex Assigned at Date Recorded Not on file Plan of Treatment Not on file Insurance Payer Benefit Plan Subscriber ID Effective Dates Phone Address Type / Group AETNA AETNA O [id number] 2015-[place] [phone] [id number] [place] [address] Carlos Fontana Personal/Family Self 1965 [address] (Home) [facility] [phone] [address], [employer] (Work) [id number] Carlos Fontana Personal/Family Self 1965 [address] (Home) [facility] [phone] [address], [employer] (Work) [id number] Carlos Fontana Personal/Family Self 1965 [address] (Home) [facility] [phone] [place] (Work) [phone] Carlos Fontana Personal/Family Self 1965 [address] (Home) [facility] [phone] [place] (Work) [phone] Care Teams Foreign Language Teacher Relationship Specialty Start Date End Date Mireya Lindsey MD PCP - General 09/02/14 [address] [place], [place] [id number]
--- OUTSIDE RECORDS SUMMARY | 2021-10-22 02:29 | XMS_ITS | Encounter Summary ---
:1965 Author Organization [facility] Address [address] [place] [address] Care Team Providers Name Role Phone Md RONNA Max Primary Care Provider Unavailable Encounter Details Date Type Department Care Team Description 08/30/2014 Hospital Encounter [facility] - S Unknown, Pro Enrique king MD [address] [facility] [phone] [place] [address] (Work) [phone] Social History Tobacco Use Types Packs/Day Years Used Date Never Assessed Sex Assigned at Date Recorded Not on file documented as of this encounter Discharge Disposition Disposition Code Departure Means Destination Home or Self Penitentiary documented in this encounter Plan of Treatment Not on filedocumented as of this encounter Visit Diagnoses Not on filedocumented in this encounter Care Teams Guest Room Attendant Relationship Specialty Start Date End Date Md Max MD PCP - General 11/17/08 09/01/14 documented as of this encounter
--- OUTSIDE RECORDS SUMMARY | 2021-10-22 02:29 | XMS_ITS | Encounter Summary ---
:1965 Author Organization [facility] Address [address] [place] [address] Care Team Providers Name Role Phone Md RONNA Max Primary Care Provider Unavailable Encounter Details Date Type Department Care Team Description 08/27/2014 Results Only [facility] Jasmin Cuenca, [address] [place] [address] [place] [address] (Wo rk) Social History Tobacco Use Types Packs/Day Years Used Date Never Assessed Sex Assigned at Date Recorded Not on file documented as of this encounter Plan of Treatment Not on filedocumented as of this encounter Procedures Procedure Name Priority Date/Time Associated Diagnosis Comme [facility] SURGICAL PATHOLOGY Routine 08/27/2014 21:45 Resul ts for this EDT procedure are i n the results section. documented in this encounter Results SURGICAL PATHOLOGY (08/27/2014 21:45 EDT) Pathology Report: SURGICAL PATHOLOGY REPORT [facility] Reports generated via electronic interface contain lloyd ginal data; LABORATORY however they are lacking the format of the original re port. SERVICES Caution should be taken when reading/interpreting unfo rmatted reports. Name: ? RASHI REDMOND ? Accession #: ? [id number] ? : ? 1965 (Age: 49) ??M ? Collect Date: ? 08/27/2014 ? Location: ? [facility] ? Receive Date: ? 015 ? Provider: JASMIN CUENCA MD Copy to: NIKKI SCHWARTZ MD ? Final Pathologic Diagnosis: GALLBLADDER, CHOLECYSTECTOMY: - ??Chronic cholecystitis with adenomyosis. See susan t. Comment: The entire nodular area has been submitted and reviewe d histologically. Document reviewed and electronically signed by: RICARDO HANNAH MD Report ??Date: 09/02/2014 11:09 By the signature above, the attending physician certif ies that he/she has personally conducted a gross and/or microscopic examin ation of the described specimens and rendered or confirmed the above diagnosi s. Specimen(s) Received: Gallbladder Clinical History: Gallstone; pancreatitis Gross Description: ? Received in formalin labelled with proper patient identification (initials B, S) and gallbladder is an intact gallbladder (7.8 x 2.9 x 2.7 cm) with a segment of cystic duct (0.5 cm in length x 0.5 cm in d iameter). ? The serosa is keating-gre en and smooth. The mucosa is dark green and velvety and the wall ranges from 0.2 cm to 0.7 cm in thickness. ??There are two thickened areas of the wall, one in the fundus and one in the proximal gallbladder, both of which have a multicystic cut surface. ??The cystic duct lumen is patent. The cystic duct margin is inked blue. ??The gallbladder contains dark green viscous bile but no choleliths are present. ? Two business development representative se ctions and the inked en face cystic duct margin are submitted in 1 and the thickened regions with cystic cut surface are submitted in 2. Geno Caro 08/31/2014 2:35 PM End of Report Specimen Performing Organization Address City/State/ZIP Code Phon e Number [facility] [address] [place] [id number] SERVICES documented in this encounter Visit Diagnoses Not on filedocumented in this encounter Care Teams Retail Associate Relationship Specialty Start Date End Date Md Max MD PCP - General 11/17/08 09/01/14 documented as of this encounter
[2021-10-22 16:07] LABS: Anion Gap 9.5 mmol/L (3-11); BUN 20 mg/dL (7-18); CO2 29.5 mmol/L (21.0-32.0); CREATININE 1.3 mg/dL (0.70-1.30); Calcium 9.1 mg/dL (8.5-10.1); Calculated LDL 62 mg/dL (<100); Chloride 103 mmol/L (98-107); Cholesterol 144 mg/dL (<200); Glucose 173 mg/dL (74-106); HDL Cholesterol 38 mg/dL (40-60); Potassium 3.4 mmol/L (3.5-5.1); Sodium 142 mmol/L (136-145); Triglyceride 223 mg/dL (<150)
[2021-10-22 16:12] LABS: COMMENT (LAB VIEW ONLY) 238.66 mg/dL
[2021-10-22 16:13] LABS: Microalb ug/mg Crea 51.9 ug/mg Cr
== END 2021-10-22 02:21 | disposition home or self-care (01) ==
PROVIDERS: PCP Internal Medicine; Visit Provider Internal Medicine
DX: I10 Essential (primary) hypertension (principal); E78.00 Pure hypercholesterolemia, unspecified; E11.29 Type 2 diabetes mellitus with other diabetic kidney complication; R80.9 Proteinuria, unspecified; E66.9 Obesity, unspecified
CPT/HCPCS: 36415; 80048; 80061; 82043; 82570

== ENCOUNTER 2022-05-13 16:13 | Outpatient (REF) | payer BC, SELFPAY | END 2022-05-13 16:14 | disposition home or self-care (01) | LOC: LBN 16:13 | PROVIDERS: PCP Internal Medicine; Referring Provider Nurse Practitioner Adult Health; Visit Provider Nurse Practitioner Adult Health | DX: N20.0 Calculus of kidney (principal) | CPT/HCPCS: 87086 ==

== ENCOUNTER 2022-07-25 09:50 | Day surgery (SDC) | payer BC, SELFPAY ==
--- NOTE | 2022-07-24 21:46 | W.PM.DSUDISC ---
Date of service: 07/25/22 Time of Service: 11:33 Discharge Plan Disposition Patient Disposition: Home Condition: Good Discharge Details Reason For Visit: Screening colonoscopy Attending Provider: Bryon Kent Primary Care Provider: Ella Nino Home Meds and New Rx's Prescriptions: Continued doxazosin 4 mg tablet 4 mg PO DAILY Qty: 90 3RF lisinopril-hydrochlorothiazide 20-25 mg tablet 1 tab PO DAILY Qty: 90 3RF pravastatin 40 mg tablet 40 mg PO DAILY Qty: 90 3RF carvedilol 25 mg tablet 25 mg PO BID Qty: 180 3RF cimetidine 800 mg tablet 800 mg PO BID Qty: 180 3RF Rx Instructions: administer with meals Discontinued polyethylene glycol 3350 17 gram/dose powder 238 g PO ONCE Qty: 238 0RF Rx Instructions: Colonoscopy Bowel Prep- Per Instructions bisacodyl [Dulcolax (bisacodyl)] 5 mg tablet,delayed release (DR/EC) 5 mg PO ONCE Qty: 4 0RF Rx Instructions: Colonoscopy Bowel Prep- Per Instructions Discharge Instructions Instructions: Diverticulosis Diet (GEN), Diverticulosis (GEN), Colorectal Polyps (GEN) Additional Instructions: Carlos, we were able to complete your colonoscopy today without any difficulty. In total, I found 6 polyps in your large intestine. I removed them all completely. Incidentally, you also have some diverticulosis. We have attached some information here regarding colon and rectal polyps, as well as diverticular disease. I will be in touch when I have the results of the pathology report from the polyp 1. If tolerated, consume a soft, low fiber diet for 1-2 days. 2. Do not drive, drink alcohol, operate machinery, make critical decisions, or do activities that require coordination or balance for 24 hours. 3. Because air was put into your colon during the procedure, expelling air from your rectum (passing gas or farting) is normal. 4. You may not have a bowel movement for 1-3 days because of the colonoscopy prep. This is normal. 5. Go directly to the emergency room if you notice any of the following: Develop chills (warm to touch), or if you have a thermometer and your temperature is above 101 Difficulty breathing or difficultly swallowing Persistent vomiting Severe abdominal pain, other than gas cramps Severe chest pain Black, tarry stools Any bleeding ? exceeding one tablespoon 6. Call your physician if the site where your intravenous was started becomes red, swollen, painful, and warm to touch. 7. Your physician has reviewed your pre-procedure medications. Please continue to take those medications as previously ordered. You will be given specific information/education regarding any changes to your medications before leaving. Activity:: Activity as Tolerated Diet:: As Tolerated Discharge Orders Discharge Orders: Discharge Order (Routine); Ordered 07/24/22 Ordered By: Bryon Kent DS: Diagnosis Discharge Diagnosis (1) Screening for colon cancer: Status: Acute Asessment and Plan: Follow-up on polypectomy results
--- NOTE | 2022-07-24 21:47 | W.COLOREPORT ---
Date of service: 07/25/22 Time of Service: 11:32 Colonoscopy Report Date of procedure: 07/25/22 Pre-op diagnosis general: Screening colonoscopy Post-op diagnosis procedure note: other (Diverticulosis, colon and rectal polyps) Procedure: Colonoscopy with polypectomy Surgeon: Bryon Kent Anesthesia Type: General:No Airway Estimated blood loss (mL): 15 Pathology: other (Polyps x2, colon polyps at 20 cm x2, 30 cm, 35 cm) Complications: None Disposition: same day Indications: Carlos is a 57 year old male with a personal history of colon polyps who is here for his next screening colonoscopy Prep: Miralax/Dulcolax Procedure Start Time: 10:58 Procedure End Time: 11:23 Retraction Time: 18 Findings: Colorectal polyps Procedure Description: After the induction of monitored anesthetic care, and with the patient in left lateral decubitus position, I began by performing an external anorectal exam.? Perineum and skin were normal, as was the anal verge.? There was no not evidence of external hemorrhoids.? Next, I performed a digital rectal exam.? I did not appreciate any abnormal findings.? Next, I advanced a colonoscope into the rectal vault.? I performed retroflexion.? This appeared normal..? Using insufflation, I then advanced the colonoscope beyond the rectal folds and into the sigmoid colon before advancing towards the cecum.? Within the rectum, there were 2 sessile polyps. Each was less than 0.25 cm. At the character of hyperplastic polyps. I removed these both completely. At 20 cm, there was a dark red, slightly vascularized polypoid lesion. It appeared consistent with vascular ectasia. I removed this with cold forcep polypectomy. Just beyond this, also around 20 cm from the anal verge, was another slightly colored, slightly vascular polyp. This was also removed with cold forceps polypectomy. There was minimal bleeding from all of these polypectomy sites the quality of the prep was very good.? The scope was noted to be in the cecum by identification of the ileocecal valve and appendiceal orifice.? I then began withdrawing the colonoscope using repeated irrigation as necessary for full evaluation of the colonic mucosa. Around 35 cm from the anal verge I identified a 0.25 cm polyp. ?It appeared sessile in character. ?I was able to remove this with a cold forceps. Similarly, another 0.5 cm flat polyp was identified around 30 cm from the anal verge. This was removed in piecemeal with cold forceps polypectomy. ?I examined the site, and there was minimal bleeding. ?Once this was completed, I continued to withdraw the scope and examine the remainder of the colonic mucosa.?Once the scope was withdrawn to the level of the rectum, great care was taken to examine portions of the rectal folds.? Finally, the scope was withdrawn and the patient was brought to the same-day surgery recovery unit as the anesthetic wore off. ?The findings and instructions were shared with the patient prior to discharge.
[2022-07-25 09:55] VITALS: BP 150/99; PULSE 74; RESP 16; TEMP 36.4; O2SAT 98
--- NOTE | 2022-07-25 10:22 | ANES.PREOP_ITS ---
General Info Date of Service Date Performed: 07/25/22 Height: 5 ft 11 in Weight: 109 kg Body Mass Index (BMI): 33.5 Surgical Procedure: Operation Date: 07/25/22 11:20 Proposed Procedure Side Surgeon p Bairon Kent MD Meds Allergies and Home Medications Allergies Allergy/AdvReac Type Severity Reaction Status Date / Time No Known Allergies Allergy Verified 07/25/22 09:54 Home Medication Medication Instructions Recorded carvedilol 25 mg tablet 25 mg PO BID #180 tab-caps 05/10/22 doxazosin 4 mg tablet 4 mg PO DAILY #90 tab-caps 05/13/22 lisinopril 20 1 tab PO DAILY #90 tab-caps 05/13/22 mg-hydrochlorothiazide 25 mg tablet pravastatin 40 mg tablet 40 mg PO DAILY #90 tab-caps 05/13/22 cimetidine 800 mg tablet 800 mg PO BID #180 tabs 05/28/22 Current Visit Medications: Current Medications Generic Name Dose Route Start Last Admin Trade Name Freq PRN Reason Stop Dose Admin Hyoscyamine Sulfate 0.125 mg 07/24/22 21:51 Hyoscyamine 0.125 Mg Sl/Oral/Chew SL DIRECTED PRN Ringer's Solution 1,000 mls @ 80 mls/hr 07/25/22 06:00 IV 08/23/22 23:59 [facility] IV Miscellaneous Supplies 1 each 07/25/22 06:00 Iv Access IV 08/23/22 23:59 DIRECTED RUBEN Ondansetron HCl 4 mg 07/24/22 21:51 Ondansetron 4 Mg/2 Ml Vial IVP Q4H PRN PRN Nausea / Vomiting Sodium Chloride 0 ml 07/25/22 06:00 Normal Saline Flush 10 Ml Syr IV 08/23/22 23:59 PRN PRN Sodium Chloride 0 ml 07/25/22 06:00 Normal Saline 10 Ml Vial IJ 08/23/22 23:59 DIRECTED PRN Sterile Water 0 ml 07/25/22 06:00 Water,Injection,Sterile 10 Ml Vial IJ 08/23/22 23:59 DIRECTED PRN PFSH Active Problems Active Problems: Problem Status Onset Code Screening for colon cancer Z12.11 Nephrolithiasis ~2021 N20.0 Hard of hearing H91.90 Sleep apnea in adult G47.30 Diabetes mellitus type 2 in obese 09/24/17 E11.69, E66.9 Essential hypertension 06/25/11 I10 Pure hypercholesterolemia 03/22/15 E78.00 Smoker 06/25/11 F17.200 Microalbuminuria due to type 2 diabetes mellitus E11.29, R80.9 Medical History Medical History Anxiety (06/25/11) Dilcia infection Diverticula of colon Gastroesophageal reflux disease (06/25/11) Serrated adenoma of colon (~03/10/20) traditional serrated adenoma Surgical History Surgical History Appendectomy Cholecystectomy (08/27/14) dr. Mays H/O cystoscopy [facility] [place] Urology 06/06/22 History of colonoscopy (~03/10/20) Tobacco Smoking/Tobacco Use Status: Current every day Tobacco Type: cigarettes Years smoked: 30 Alcohol Alcohol Intake: current Alcohol intake frequency: holidays/special occasions only Alcohol type: hard liquor Substance Use Substance use: Never Substance use type: does not use Vital Signs and Lab Results Vital Signs Most Recent Vital Signs in EMR: Most Recent Vital Signs Temp Pulse Resp BP Pulse Ox 36.4 C L 74 16 150/99 H 98 07/25/22 09:55 07/25/22 09:55 07/25/22 09:55 07/25/22 09:55 07/25/22 09:55 Point of Care Results Point of Care Results: Finger Stick Blood Glucose 122 07/25/22 10:03 Lab Results Blood Type / Crossmatch: No Data to Display Complete Blood Count: No Data to Display Complete Metabolic Panel: No Data to Display Liver Function Panel: No Data to Display Coagulation Panel: No Data to Display Cardiac Panel: No Data to Display Arterial Blood Gas: No Data to Display Venous Blood Gas: No Data to Display Pancreas Panel: No Data to Display Thyroid Panel: No Data to Display Infectious Disease: No Data to Display Blood Cultures: No Data to Display Toxicology Panel: No Data to Display Anesthesia Assessment and Plan Anesthesia History Personal History: No History of Anesthesia Complications Family History: No Family History of Anesthesia Complications Exercise Tolerance Exercise Tolerance: Metabolic Equivalents>4 Pertinent Negatives Pertinent Negatives: No Symptoms of GERD (well controlled) Cardiac & Pulmonary Exam Cardiac Exam: Normal S1/S2 Heart Sounds Pulmonary Exam: Clear Bilateral Breath Sounds Implantable Cardiac Device Does patient have a Pacemaker or an ICD?: No Airway Exam Known Difficult Airway: No Mallampati Class: 3 Mouth Opening: Normal (> 3cm) Thyromental Distance: Greater than 3 cm Facial Hair: Full Aguilar Neck Range of Motion: Full ROM Neck Circumference: Normal Teeth Condition: Normal Dentition and Removable Dentures/Plates Upper ASA Classification ASA Score: ASA 2 Emergency Case?: No NPO Status NPO Status: NPO Clears >2 hours, Solids >8 hours Anesthesia Plan Resuscitation Status: Full Code Anesthesia Technique: General Anesthesia Airway Planned: Natural Airway Monitors Used: Standard Monitors
[2022-07-25] MEDS: Lactated Ringers 1,000 ML 80 ML IV (10:27)
[2022-07-25 10:41] VITALS: BMI 33.5
--- NOTE | 2022-07-25 11:00 | BOWEL_PTH ---
PATIENT: Carlos Fontana LOC: [facility] U#:[id number] AGE/SX: 57/M ROOM: RE07/25/[address]: Bryon Kent MD : 1965 BED: DIS: 07/25/2022 SPEC #: [id number] RECD: 07/25/22 12:42 STATUS: JANETH RE #: [id number] JENIFFER: 07/25/22 11:[address]: Bryon Kent DEPT: Surgical Specimen RECD BY: Mindy Castro ENTERED: 07/25/22 12:43 SP TYPE: Bowel OTHR DR: Ella Nino, JESSICA Tissues: 1 - BIOPSY BOWEL 2 - BIOPSY BOWEL 3 - BIOPSY BOWEL 4 - BIOPSY BOWEL 5 - BIOPSY BOWEL Procedures: GROSS AND MICRO LEVEL 4 Comments: [id number]
[2022-07-25 11:31] VITALS: BP 112/68; PULSE 79; RESP 16; TEMP 36.7; O2SAT 94
--- NOTE | 2022-07-25 11:39 | W.ANESPOSTOP ---
Postoperative Evaluation Date, Time and Location Date Performed: 07/25/22 Time Performed: 11:39 Patient Location: Day Surgery Unit Vital Signs Most Recent Imported Vital Signs: Most Recent Vital Signs Temp Pulse Resp BP Pulse Ox 36.7 C 79 16 112/68 94 07/25/22 11:31 07/25/22 11:31 07/25/22 11:31 07/25/22 11:31 07/25/22 11:31 Pain Score Most Recent Pain Score: Most Recent Pain Score Pain Level 0 07/25/22 11:31 Assessment Mental Status: Awake (Alert & Oriented to Patient Baseline) Airway and Respiratory Function: Patent airway with normal (patient baseline) respiratory exam Cardiovascular Function: Hemodynamically Stable Hydration Status: Adequately Hydrated Nausea & Vomiting: No Nausea or Vomiting Pain: Pt. Denies Any Pain Peripheral Nerve Block: Patient did not receive a nerve block
[2022-07-25 12:05] VITALS: BP 125/81; PULSE 70; RESP 18; TEMP 36.2; O2SAT 96
== END 2022-07-25 12:09 | disposition home or self-care (01) ==
PROVIDERS: PCP Nurse Practitioner Adult Health; Visit Provider Surgery
PROC: 0DJD8ZZ Inspection of Lower Intestinal Tract, Via Natural or Artificial Opening Endoscopic (ICD-10-PCS; CPT 45378; principal; 2022-07-25 11:15)
DX: Z12.11 Encounter for screening for malignant neoplasm of colon (principal); K63.5 Polyp of colon; Z86.010 Personal history of colon polyps; K57.30 Diverticulosis of large intestine without perforation or abscess without bleeding; K62.1 Rectal polyp; K63.89 Other specified diseases of intestine
CPT/HCPCS: 45380; 88305

== ENCOUNTER 2022-11-04 02:44 | Outpatient (CLI) | payer BC, SELFPAY ==
[2022-11-04 08:00] LABS: Anion Gap 9.1 mmol/L (3-11); BUN 15 mg/dL (7-18); CO2 28.9 mmol/L (21.0-32.0); CREATININE 0.9 mg/dL (0.70-1.30); Calcium 8.7 mg/dL (8.5-10.1); Calculated LDL 68 mg/dL (<100); Chloride 99 mmol/L (98-107); Cholesterol 143 mg/dL (<200); Estimated GFR 99.62 (mL/min/1.73m2); Glucose 255 mg/dL (74-106); HDL Cholesterol 36 mg/dL (40-60); Potassium 3.6 mmol/L (3.5-5.1); Sodium 137 mmol/L (136-145); Triglyceride 198 mg/dL (<150)
[2022-11-04 08:00] LABS: COMMENT (LAB VIEW ONLY) 24.58 mg/dL; Microalb ug/mg Crea 9.8 ug/mg Cr
[2022-11-04 08:18] LABS: Hemoglobin A1C 6.5 % (<5.7)
== END 2022-11-04 02:45 | disposition home or self-care (01) ==
LOC: LBO 02:44
PROVIDERS: PCP Nurse Practitioner Adult Health; Referring Provider Nurse Practitioner Adult Health; Visit Provider Nurse Practitioner Adult Health
DX: E11.29 Type 2 diabetes mellitus with other diabetic kidney complication (principal); E78.00 Pure hypercholesterolemia, unspecified; I10 Essential (primary) hypertension; R80.9 Proteinuria, unspecified
CPT/HCPCS: 36415; 80048; 80061; 82043; 82570; 83036

== ENCOUNTER 2023-11-24 03:21 | Outpatient (CLI) | payer BC, SELFPAY ==
[2023-11-24 08:20] LABS: Anion Gap 6.1 mmol/L (3-11); BUN 16 mg/dL (7-18); CO2 29.9 mmol/L (21.0-32.0); Calculated LDL 72 mg/dL (<100); Chloride 102 mmol/L (98-107); Cholesterol 148 mg/dL (<200); Estimated GFR 87.24 (mL/min/1.73m2); Glucose 271 mg/dL (74-106); HDL Cholesterol 40 mg/dL (40-60); Hemoglobin A1C 7.3 % (<5.7); Potassium 3.6 mmol/L (3.5-5.1); Sodium 138 mmol/L (136-145); Triglyceride 183 mg/dL (<150)
[2023-11-24 08:48] LABS: COMMENT (LAB VIEW ONLY) 147.53 mg/dL; Microalb ug/mg Crea 9.1 ug/mg Cr
== END 2023-11-24 03:22 | disposition home or self-care (01) ==
LOC: LBO 03:21
PROVIDERS: PCP Nurse Practitioner Adult Health; Referring Provider Nurse Practitioner Adult Health; Visit Provider Nurse Practitioner Adult Health
DX: E11.69 Type 2 diabetes mellitus with other specified complication (principal); E66.9 Obesity, unspecified; E11.29 Type 2 diabetes mellitus with other diabetic kidney complication; R80.9 Proteinuria, unspecified; E78.00 Pure hypercholesterolemia, unspecified; I10 Essential (primary) hypertension
CPT/HCPCS: 36415; 80048; 80061; 82043; 82570; 83036